=== PATIENT | female | born 1990 | race Caucasian/White ===

== ENCOUNTER 2022-06-17 17:50 | Inpatient (IN) | payer MEDICAID ==
[~2022-06-17] VITALS: Ht 162.6 cm; Wt 83.5 kg
[2022-06-17] MEDS ORDERED: DIPHENHYDRAMINE 50MG/ML VIAL IM PRN (20:30)
[2022-06-17] MEDS ORDERED: NALOXONE HCL 0.4 MG/ML 1ML VIAL IM PRN (20:30)
[2022-06-17] MEDS ORDERED: CARBOPROST TROMETHAMINE 250 MCG/ML AMPUL IM PRN (20:30)
[2022-06-17] MEDS ORDERED: METHYLERGONOVINE MALEATE 0.2 MG/ML IM PRN (20:30)
[2022-06-17] MEDS ORDERED: BUTORPHANOL TARTRATE 2 MG/ML VIAL IV PRN (20:30)
[2022-06-17] MEDS ORDERED: ONDANSETRON HCL 4MG/2ML INJ IM PRN (20:30)
[2022-06-17] MEDS ORDERED: LIDOCAINE HCL 1% 20ML VIAL (Pyxis) INJ INFIL SCH (20:30)
[2022-06-17] MEDS ORDERED: MISOPROSTOL 100MCG TABLET VG SCH (20:30)
[2022-06-17] MEDS ORDERED: NALOXONE HCL 0.4 MG/ML 1ML VIAL IV PRN (20:30)
[2022-06-17 21:49] LABS: BASOPHILS % 0.2 % (0.0-2.0); EOSINOPHILS % 0.7 % (0.0-5.0); LYMPHOCYTES % 31.8 % (20.0-50.0); MEAN CORPUSCULAR HEMOGLOBIN 34.5 pg (28.0-32.0); MEAN CORPUSCULAR VOLUME 100.5 fL (81.0-99.0); MEAN PLATELET VOLUME 10.5 fl (7.4-10.4); MONOCYTES % 7.5 % (2.0-8.0); NEUTROPHILS % 59.8 % (40.0-76.0); PLATELET 193 x1000/uL (130-400); RED BLOOD CELL COUNT 3.78 mill/uL (4.2-5.4); RED CELL DISTRIBUTION WIDTH 14.3 % (11.6-14.6)
[2022-06-17 21:58] LABS: PARTIAL THROMBOPLASTIN TIME 28.5 sec (23.4-31.0); PROTHROMBIN TIME 10.3 sec (9.6-11.0)
[2022-06-17 22:46] LABS: HEPATITIS B SURFACE ANTIGEN NEGATIVE
[2022-06-17] MEDS ORDERED: ROPIVACAINE HCL/PF EPIDURAL 200 ML EPI SCH (23:30)
[2022-06-17] MEDS: LACTATED RINGERS 1,000 ML IV SCH (23:34)
[2022-06-17] MEDS ORDERED: ROPIVACAINE HCL/PF EPIDURAL 200 ML EPI ONE (23:40)
[2022-06-18] MEDS: LACTATED RINGERS 1,000 ML IV SCH ×2 (00:18→00:19)
[2022-06-18] MEDS ORDERED: OXYTOCIN 30 UNITS/500ML NS PMX 500 ML IV ONE (01:15)
[2022-06-18 07:15] LABS: *AMPHETAMINES SCREEN URINE NEGATIVE (NEGATIVE); *BARBITURATES SCREEN URINE NEGATIVE (NEGATIVE); *BENZODIAZEPINES SCREEN URINE NEGATIVE (NEGATIVE); *COCAINE SCREEN URINE NEGATIVE (NEGATIVE); CANNABINOID URINE SCREEN NEGATIVE (NEGATIVE); METHADONE URINE SCREEN NEGATIVE (NEGATIVE); OPIATES URINE SCREEN NEGATIVE (NEGATIVE); PHENCYCLIDINE URINE SCREEN NEGATIVE (NEGATIVE)
[2022-06-18] MEDS ORDERED: RHO(D) IMMUNE GLOBULIN 300 MCG/SYR IM PRN (09:30)
[2022-06-18] MEDS ORDERED: LANOLIN OINT 7GM TUBE TOP PRN (09:30)
[2022-06-18] MEDS ORDERED: METHYLERGONOVINE MALEATE 0.2 MG/ML IM PRN (09:30)
[2022-06-18] MEDS ORDERED: IBUPROFEN 400MG TABLET PO PRN (09:30)
[2022-06-18] MEDS: OXYTOCIN 30 UNITS/500ML NS PMX 500 ML IV SCH ×2 (09:57→13:18)
[2022-06-18] MEDS: IBUPROFEN 800MG TABLET PO PRN ×2 (11:40→22:09)
[2022-06-18 12:00] VITALS: BP 101/67
[2022-06-18 13:00] VITALS: BP 102/64
[2022-06-18 15:41] VITALS: BP 97/64
[2022-06-18 20:00] VITALS: BP 101/53
[2022-06-19 04:00] VITALS: BP 96/50
[2022-06-19 07:04] LABS: BASOPHILS % 0.3 % (0.0-2.0); EOSINOPHILS % 1.2 % (0.0-5.0); HEMATOCRIT. 28.2 % (36.0-48.0); HEMOGLOBIN. 9.7 g/dL (12.0-16.0); LYMPHOCYTES % 27.1 % (20.0-50.0); MEAN CORPUSCULAR HEMOGLOBIN 34.8 pg (28.0-32.0); MEAN CORPUSCULAR VOLUME 100.9 fL (81.0-99.0); MEAN PLATELET VOLUME 10.3 fl (7.4-10.4); MONOCYTES % 5.7 % (2.0-8.0); NEUTROPHILS % 65.7 % (40.0-76.0); PLATELET 154 x1000/uL (130-400); RED CELL DISTRIBUTION WIDTH 14.6 % (11.6-14.6)
[2022-06-19 07:30] VITALS: BP 94/61
[2022-06-19] MEDS: PRENATAL VIT/FE FUMARATE/FA TABLET PO SCH (08:11)
[2022-06-19 15:56] VITALS: BP 103/65
[2022-06-19 20:00] VITALS: BP 99/65
[2022-06-19] MEDS: IBUPROFEN 800MG TABLET PO PRN (20:24)
[2022-06-20 04:00] VITALS: BP 101/68
[2022-06-20] MEDS: IBUPROFEN 800MG TABLET PO PRN ×2 (05:02→11:03)
[2022-06-20 07:30] VITALS: BP 101/56
[2022-06-20] MEDS: PRENATAL VIT/FE FUMARATE/FA TABLET PO SCH (07:57)
== END 2022-06-20 11:15 | disposition home or self-care (01) | DRG 560 ==
LOC: OBSVTOIN 17:50 → 8 EST LDRP 17:50 → 8EST 06-18 12:09
PROVIDERS: ADMIT Obstetrics & Gynecology; ATTEND Obstetrics & Gynecology
PROC: 10E0XZZ Delivery of Products of Conception, External Approach (ICD-10-PCS; principal; 2022-06-18)
PROC: 3E0R3BZ Introduction of Anesthetic Agent into Spinal Canal, Percutaneous Approach (ICD-10-PCS; 2022-06-18)
PROC: 00HU33Z Insertion of Infusion Device into Spinal Canal, Percutaneous Approach (ICD-10-PCS; 2022-06-18)
DX: O41.03X0 Oligohydramnios, third trimester, not applicable or unspecified (principal); Z37.0 Single live birth; O48.0 Post-term pregnancy; Z20.822 Contact with and (suspected) exposure to COVID-19; O69.81X0 Labor and delivery complicated by cord around neck, without compression, not applicable or unspecified; Z3A.41 41 weeks gestation of pregnancy
CPT/HCPCS: 36415; 76805; 76818; 80305; 85025; 86592; 86762; 86850; 86900; 87340; 87426; 99281; J2795; J7120; A4315; J2590

== ENCOUNTER 2024-08-26 16:22 | Emergency (ER) | payer MEDICAID ==
[~2024-08-26] VITALS: Ht 157.5 cm; Wt 79.0 kg
[2024-08-26 16:26] VITALS: BP 107/66; PULSE 69; RESP 16; TEMP 98.3; O2SAT 97
[2024-08-26 17:52] LABS: HCG SCREEN POSITIVE
== END 2024-08-26 23:29 | disposition left against medical advice (07) ==
LOC: ER 16:22
DX: R09.89 Other specified symptoms and signs involving the circulatory and respiratory systems (principal)
CPT/HCPCS: 84703; 99283